=== PATIENT | female | born 1995 | race Caucasian/White ===

== ENCOUNTER 2017-02-16 11:06 | Inpatient (IN) | payer OTHER ==
[~2017-02-16] VITALS: Ht 162.6 cm; Wt 89.4 kg
[2017-02-16 11:37] LABS: Mean Corpuscular Hemoglobin 29.5 pg (27.0-35.0); Mean Corpuscular Volume 85.3 fL (81-100)
--- NOTE | 2017-02-16 14:27 | PCM.HPOB ---
Subjective Date of Service: Feb 16, 2017 Referring Provider: Admitting Physician: Lisa Saba MD Primary Care Physician: Nopcp Attending Physician: Lisa Saba MD Chief Complaint 39 wk 6 day gestation induction of labor for symptomatic induced hypertension History of Present History of Present Illness Patient is a 22 y.o. F at 39 weeks and 6 days MELVIN 02/18/17 presents to [facility] from office for induction of labor due to symptomatic induced hypertension. Patient seen in clinic today noted to have elevated BP 140's/90's , patient noted over past two weeks increased swelling of upper extremities, occasional headache, mild swelling of feet. BP at last two visits elevated. Decision made in clinic to have patient evaluated in [facility] for NST and PIH labs. With elevated BP and symptoms over past two weeks decision made to admit patient and start induction of labor. Patient examined at bedside patient noted active symptoms of elevated BP at home , swelling in hands which has improved somewhat from last week. Patient denies headache, change in vision, numbness, tingling, loss of balance, anuria,dysuria , fever, chills, night sweats, vaginal bleeding, discharge leakinage of fluid. PIH labs done at [facility] protein/creatine ration 0.19, Cr. 0.50. WCT 7.8 H/H 39.9/ 13.8. Patient requests no blood transfusion if needed. Labs: Pap normal GGT normal GBS negative O + Ab screening negative H/H 44.6/15.2 Varicella immune Rubella immune RPR non reactive Hep B neg HIV neg UA negative PIH labs negative OB History: (1), Para (0) Obstetrical Complications: Gestational Hypertension Past Medical History Obstetrical History: No prior pregnancies Gynecologic History: Last pap normal No history of STI Medical History: Seasonal allergies Allergy to shellfish Surgical History: none reported Social History: lives with family Hx Tobacco Use: No Hx Alcohol Use: No Hx Substance Use: No Past Family History Living Arrangement: with Family Genetic Screening/Counseling Genetic Screening/Counseling: Negative Review of Systems Constitutional: Y: Change of appitite, Chills, Dizziness Eyes: Denies: Blurred Vision, Conjunctive Inflammation, Double Vision Cardiovascular: Reports: Edema, Denies: Chest Pain, Orthopnea, Palpitations, SOB while laying flat Respiratory: Denies: Cough, Cough with bloody sputum, Pleuritic Chest Pain Gastrointestinal: Denies: Abdominal Pain, Epigastric pain, Heartburn, Nausea, Vomiting Genitourinary: Denies: Dysuria, Hematuria Musculoskeletal: Denies: Limitation of Function, Redness, Swelling Neurological: Denies: Change in Speech, Confusion, Dizziness, Incoordination Psychologic: Denies: Agitation, Anxious, Apprehensive Allergy Coded Allergies: shellfish derived (Verified Allergy, Unknown, 02/16/17) Exam Vital Signs HR 85 BP 129/89 Exam FHR baseline: 135 Category I tracing irregular contractions Cervical exam 1.0 dialtion 50% effaced station -3 firm posterior Constitutional: Well-developed, Well-nourished HEENT: Atraumatic, PERRLA, EOMI, Scleral Anicteric Lungs: Clear to Auscultation, Normal Air Movement Heart: Regular Rate/Rhythm, Normal S1, Normal S2 Abdomen: Gravid (consistnet with gestational age), Normal bowel sounds, No tenderness Extremities: Pulses Palpable x4, Edema (trace lower and upper extremities ) Neurological/Psychiatric: Alert, Oriented X3, Cooperative, No Acute Distress Labs/Diagnostics Labs Laboratory Tests 72 Hours Test 02/16/17 11:20 White Blood Count 7.8th/mm3 (3.8-10.1) Red Blood Count 4.68mil/mm3 (3.90-5.20) Hemoglobin 13.8g/dL (12.0-15.6) Hematocrit 39.9% (35.0-46.0) Mean Corpuscular Volume 85.3fL (81-100) Mean Corpuscular Hemoglobin 29.5pg (27.0-35.0) Mean Corpuscular Hemoglobin Concent 34.6% (32.0-37.0) Red Cell Distribution Width 13.7% (12.3-15.4) Platelet Count 252bil/L (150-400) Hematology Comments Urine Random Creatinine 109mg/dL (16-392) Urine Random Total Protein 21mg/dL (0-15) Urine Protein/Creatinine Ratio 0.19 (0-200) Blood Urea Nitrogen 12mg/dL (6-20) Creatinine 0.50mg/dL (0.57-1.00) Uric Acid 4.8mg/dL (2.6-7.2) Aspartate Amino Transf (AST/SGOT) 14U/L (0-50) Alanine Aminotransferase (ALT/SGPT) 16U/L (0-32) Maternal Blood Type: AB Hx Rho(D) Immune Globulin: No Antibody Screen: negative Group B Strep Results: Negative Previous with GBS: No Rubella: Immune Additional Information vaccinations up to date OB Intrapartum Assessment/Plan Assessment Patient is a 22 y.o. F at 39 weeks and 6 days MELVIN 02/18/17 presents to [facility] from office for induction of labor due to symptomatic induced hypertension.PIH labs prot/creat ration0.19, BP uncontrol at time of examination , does not meet criteria for IV Mg, cervix and Bains score not favorable for induction with Pitocin. Problems: (1) induced hypertension Plan: Admit to [facility] Start IV IVF LR 125 mls/hr Diet full, NPO when starting pitocin Continue tocometry Ibuprofen 600 mg PO Q6 hrs for pain Tylenol 625 mg PO Q8 hrs for pain Zofran ODT 4 mg PRN nausea PIH labs completed Start induction with Cytotec 25 mg with cervical check in 4 hours Vitals Q4 hours Status: Acute ICD Code: O13.9 (2) with 39 completed weeks gestation Status: Acute ICD Code: Z3A.39 Attending Statement Patient seen and examined. Cytotec ordered, until Bains score >8, if still unfavorable after this then will place cervidil. BP stable at this time. FHT category 1 SARAH RANDLE DO Feb 16, 2017 14:27 Lisa Saba MD Feb 16, 2017 18:03
[2017-02-16] MEDS: Misoprostol 25 mCg/0.25 Tablet VAGINAL SCH ×2 (14:42→18:40)
[2017-02-16] MEDS ORDERED: Lactated Ringer's 1,000 ML IV PRN (16:38)
[2017-02-16] MEDS ORDERED: Oxytocin 30 Units/500 mL LR 30 UNITS in IV Premix 1 EACH IV PRN (16:40)
[2017-02-16] MEDS ORDERED: Oxytocin 10 Unit/mL Inj IM PRN (16:40)
[2017-02-16] MEDS ORDERED: Hemorrhage Kit, Post Partum XX ONE (16:40)
[2017-02-16] MEDS ORDERED: Sodium Chloride LOK Flush 10 mL Syringe IVFLUSH PRN (16:40)
[2017-02-16] MEDS ORDERED: Carboprost 250 mCg/mL Inj IM PRN (16:40)
[2017-02-16] MEDS ORDERED: Methylergonovine 0.2 mg/mL Inj IM PRN (16:40)
[2017-02-16] MEDS ORDERED: Misoprostol 25 mCg/0.25 Tablet VAGINAL ONE (20:30)
[2017-02-16] MEDS: Lactated Ringer's 1,000 ML IV SCH ×2 (21:30→23:45)
[2017-02-17] MEDS ORDERED: Ondansetron 2 mg/mL 2 mL Inj IVPUSH PRN (01:35)
[2017-02-17] MEDS: fentaNYL-PF 50 mCg/mL 2 mL Inj IVPUSH PRN ×3 (02:14→05:11)
[2017-02-17] MEDS: Lactated Ringer's 1,000 ML IV SCH (03:52)
[2017-02-17] MEDS ORDERED: Lactated Ringer's 500 ML IV ONE (05:09)
[2017-02-17] MEDS ORDERED: Lactated Ringer's 1,000 ML IV SCH ×2 (05:09→18:34)
[2017-02-17] MEDS ORDERED: Phenylephrine/NS-PF 100 mCg/mL 5 mL Syringe IVPUSH PRN (05:10)
[2017-02-17] MEDS ORDERED: fentaNYL 2 mCg/mL-Bupiv 0.125% 100 ML EPIDURAL SCH (05:10)
[2017-02-17] MEDS ORDERED: EPHEDrine Sulfate 50 mg/mL Inj IVPUSH PRN (05:10)
[2017-02-17] MEDS ORDERED: Atropine 1 mg/10 mL (Code) Syringe IVPUSH PRN (05:10)
--- NOTE | 2017-02-17 05:14 | PCM.HPANE ---
Patient Data Date of Service: Feb 17, 2017 Surgeon Admitting Provider:Lisa Saba MD Attending Provider:Lisa Saba MD Primary Care Physician:Nopcp Other Provider: Reason for Visit Induction INDUCTION Ht/WT & BMI Height (Centimeters): 162.6 Weight (Kilograms): 89.4 Body Mass Index 33.8 Allergies Coded Allergies: shellfish derived (Verified Allergy, Unknown, 02/16/17) Past Anesthesia History Anesthesia History: Denies:: Abnormal Airway, Fam Anesthesia Reaction Diabetes History Hx Diabetes?: No Medications Hypertension Medication: No Home Meds Incl Beta Carlito: No History History of ENT Problems?: No HEENT History: Denies:: Abnormal Airway Denture Type: None Teeth Condition: Within Normal Limits Hx of Heart Problems?: Yes Cardiovascular History: Positive for:: Edema (with ) Hypertension (with ) Hx of Respiratory Problem?: No Respiratory History: Denies:: Asthma Hx Neurologic Problems?: No Neurological History: Denies:: Peripheral Neuropathy Seizures Hx of GI Problems?: No Hx of Problems?: No Female Hx: Positive for:: Currently Hx Musculoskeletal Problems?: No Hx Surgeries?: No Hx Alcohol Use: NoHx Substance Use: No Smoking Status: Never Smoker Stop/Bang Risk Assessment Category Category 1A: Patient has history of documented sleep apnea, and HAS NOT received any narcotic, sedative or anesthesia administration during this stay. Category 1B: Patient has history of documented sleep apnea, and HAS received any narcotic , sedative or anesthesia administration during this stay Category 2: Patient has SUSPECTED Obstructive Sleep Apnea, and HAS received any narcotic , sedative or anesthesia administration during this stay. Category 3: Patient has SUSPECTED Obstructive Sleep Apnea and HAS NOT received narcotic, sedative or anesthesia administration during this stay. Category 4: Outpatient in Procedural Areas with known sleep apnea or who screen positive for High Risk via the STOP/BANG questionnaire. Exam Exam General Appearance: Alert, Oriented X3, Cooperative, Moderate Distress ( contraction pain) HEENT/AIRWAY: MP 3, Neck Movement (from) Lungs: Clear to Auscultation, Normal Air Movement Heart: Other (tachycardic, no murmur) Meds/Labs/Diagnostics Admission Meds Current Medications Lactated Ringer's (Lr) 1,000 ml @ 125 mls/hr Q8H IV Last administered on t 03:52; Start 02/16/17 at 13:34 Misoprostol (Cytotec) 25 mcg Q4H VAGINAL Last administered on 02/16/17t 18:40; Start 02/16/17 at 13:35 Labs Test 02/16/17 11:20 White Blood Count 7.8th/mm3 (3.8-10.1) Red Blood Count 4.68mil/mm3 (3.90-5.20) Hemoglobin 13.8g/dL (12.0-15.6) Hematocrit 39.9% (35.0-46.0) Mean Corpuscular Volume 85.3fL (81-100) Mean Corpuscular Hemoglobin 29.5pg (27.0-35.0) Mean Corpuscular Hemoglobin Concent 34.6% (32.0-37.0) Red Cell Distribution Width 13.7% (12.3-15.4) Platelet Count 252bil/L (150-400) Hematology Comments Urine Random Creatinine 109mg/dL (16-392) Urine Random Total Protein 21mg/dL (0-15) Urine Protein/Creatinine Ratio 0.19 (0-200) Blood Urea Nitrogen 12mg/dL (6-20) Creatinine 0.50mg/dL (0.57-1.00) Uric Acid 4.8mg/dL (2.6-7.2) Aspartate Amino Transf (AST/SGOT) 14U/L (0-50) Alanine Aminotransferase (ALT/SGPT) 16U/L (0-32) Plan Impression Patient chart reviewed, patient interviewed and anesthestic plan with risks, benefits, and alternatives discussed, and informed consent obtained. ASA Physical Status: ASA3 Severe Disease (-induced hypertension, peripheral edema) Anesthetic Plan: Epidural (labor) Bene/Risks/Altern/Consents: Yes HP Complete Prior to Induction: Yes Stu Still MD Feb 17, 2017 05:14
--- NOTE | 2017-02-17 07:40 | PCM.PNOBIP ---
Subjective Date of Service Feb 17, 2017 Delivery plan: Spontaneous Vaginal Delivery Visit History Patient is a 22 y.o. F at 39 weeks and 6 days MELVIN 02/18/17 presents to [facility] from office for induction of labor due to symptomatic induced hypertension. Patient seen in clinic today noted to have elevated BP 140's/90's , patient noted over past two weeks increased swelling of upper extremities, occasional headache, mild swelling of feet. BP at last two visits elevated. Decision made in clinic to have patient evaluated in [facility] for NST and PIH labs. With elevated BP and symptoms over past two weeks decision made to admit patient and start induction of labor. 02/16/17 Patient examined at bedside patient noted active symptoms of elevated BP at home, swelling in hands which has improved somewhat from last week. Patient denies headache, change in vision, numbness, tingling, loss of balance, anuria,dysuria, fever, chills, night sweats, vaginal bleeding, discharge leakage of fluid. PIH labs done at [facility] protein/creatine ration 0.19, Cr. 0.50. WCT 7.8 H/H 39.9/13.8. Overnight patient noted to have temp 37.8 with episodes of low BP 90's/60's received 4 L bolus NS, with intermittent late decelerations on tracing. Patient repositioned with improvement in BP and tracing. Patient progressed from 1-cm to 4.5 cm overnight with Cytotec. Patient received epidural after 4 cm dilation. Subjective Today patient examined at bedside patient stated that she had some nausea with epidural without vomiting. Episodes of low BP with dizziness overnight, received 4 L bolus, good urine output in/out cath. Received epidural at 4 cm with painful contractions. Denies fever, shortness of breath, chest pain, swelling of hands/face, changes in vision, bleeding. Labs Labs: Pap normal GGT normal GBS negative O + Ab screening negative H/H 44.6/15.2 Varicella immune Rubella immune RPR non reactive Hep B neg HIV neg UA negative PIH labs negative Group B Strep Results: Negative Rubella: Immune Blood Type: AB Labs Laboratory Tests 02/16/17 11:20: White Blood Count 7.8, Red Blood Count 4.68, Hemoglobin 13.8, Hematocrit 39.9, Mean Corpuscular Volume 85.3, Mean Corpuscular Hemoglobin 29.5, Mean Corpuscular Hemoglobin Concent 34.6, Red Cell Distribution Width 13.7, Platelet Count 252, Hematology Comments Exam Vital Signs Vital Signs Contraction frequency in minutes: MVUs: Vital Signs: VS reviewed, concerns are (overnight episodes of low BP 90's/60's) Heart Tracings Heart Tones Baseline 130 bpm Heart Rate Variability: Moderate Heart Rate Accelleration: Present Heart Rate Deceleration: Present (late) Heart Rate Category: II Tocometry/IUPC Contraction frequency in minutes: MVUs: Sterile Vaginal Exam Cervical Dilation: 4 cms Cervical Effacement: 90 % Station: -2 Exam Abdomen: Uterus is (gravid) Extremities: Edema 1+ Lungs: Clear to Auscultation, Normal Air Movement Heart: Regular Rate/Rhythm, Normal S1, Normal S2, Other (tachycardic, no murmur ) General: Alert, Oriented X3, Cooperative, Moderate Distress (contraction pain) OB Intrapartum Assessment/Plan Assessment Patient is a 22 y.o. F at 39 weeks and 6 days MELVIN 02/18/17dmitted to [facility] from office for induction of labor due to symptomatic induced hypertension. Overnight episodes of hypotension and category II tracings with late decelerations. After repositioning patient had improvement of BP 128/86, and return category I tracing FHR 135 Problems: (1) induced hypertension Plan: Continue intrapartum care Continue maintenance IVF LR 125 mls/hr NPO Continue tocometry Ibuprofen 600 mg PO Q6 hrs for pain Tylenol 625 mg PO Q8 hrs for pain Zofran ODT 4 mg PRN nausea PIH labs completed, negative Continue Pitocin Vitals Q4 hours, monitor strict I/O, monitor hypotension Status: Acute ICD Code: O13.9 (2) with 39 completed weeks gestation Plan: see above Status: Acute ICD Code: Z3A.39 SARAH RANDLE DO Feb 17, 2017 07:40
[2017-02-17] MEDS ORDERED: Oxytocin 30 Units/500 mL LR 30 UNITS in IV Premix 1 EACH IV PRN ×2 (12:40→18:35)
[2017-02-17] MEDS ORDERED: Carboprost 250 mCg/mL Inj IM PRN (18:35)
[2017-02-17] MEDS ORDERED: Oxytocin 10 Unit/mL Inj IM PRN (18:35)
[2017-02-17] MEDS ORDERED: Hemorrhage Kit, Post Partum XX ONE (18:35)
[2017-02-17] MEDS ORDERED: Methylergonovine 0.2 mg/mL Inj IM PRN (18:35)
[2017-02-17] MEDS ORDERED: Witch Hazel-Glycerin Pads TOPICAL PRN (18:35)
[2017-02-17] MEDS ORDERED: LANOlin HPA 7 Gm Ointment TOPICAL PRN (18:35)
[2017-02-17] MEDS ORDERED: Benzocaine (Dermoplast) 20% 60 Gm Spray TOPICAL PRN (18:35)
[2017-02-17] MEDS: oxyCODONE-Acetamin 5-325 mg Tablet PO PRN (22:40)
[2017-02-18] MEDS: oxyCODONE-Acetamin 5-325 mg Tablet PO PRN ×3 (02:34→17:52)
[2017-02-18 06:55] LABS: Mean Corpuscular Hemoglobin 29.7 pg (27.0-35.0); Mean Corpuscular Volume 86.6 fL (81-100)
--- NOTE | 2017-02-18 07:27 | PCM.PNOBPP ---
Subjective Date of Service Feb 18, 2017 Post : Spontaneous Vaginal Delivery Visit History Patient is a 22 y.o. F at 39 weeks and 6 days MELVIN 02/18/17 presents to [facility] from office for induction of labor due to symptomatic induced hypertension. Patient seen in clinic today noted to have elevated BP 140's/90's , patient noted over past two weeks increased swelling of upper extremities, occasional headache, mild swelling of feet. BP at last two visits elevated. Decision made in clinic to have patient evaluated in [facility] for NST and PIH labs. With elevated BP and symptoms over past two weeks decision made to admit patient and start induction of labor. 02/16/17 Patient examined at bedside patient noted active symptoms of elevated BP at home, swelling in hands which has improved somewhat from last week. Patient denies headache, change in vision, numbness, tingling, loss of balance, anuria,dysuria, fever, chills, night sweats, vaginal bleeding, discharge leakage of fluid. PIH labs done at [facility] protein/creatine ration 0.19, Cr. 0.50. WCT 7.8 H/H 39.9/13.8. Overnight patient noted to have temp 37.8 with episodes of low BP 90's/60's received 4 L bolus NS, with intermittent late decelerations on tracing. Patient repositioned with improvement in BP and tracing. Patient progressed from 1-cm to 4.5 cm overnight with Cytotec. Patient received epidural after 4 cm dilation.Patient progress over last evening and delivered via at 1820 . Labs Labs: Pap normal GGT normal GBS negative O + Ab screening negative H/H 44.6/15.2 Varicella immune Rubella immune RPR non reactive Hep B neg HIV neg UA negative PIH labs negative Group B Strep Results: Negative Rubella: Immune Blood Type: AB RH Type: Positive Labs Laboratory Tests 02/16/17 11:20: Hematology Comments 02/18/17 06:40: White Blood Count 11.8, Red Blood Count 3.87, Hemoglobin 11.5, Hematocrit 33.5, Mean Corpuscular Volume 86.6, Mean Corpuscular Hemoglobin 29.7, Mean Corpuscular Hemoglobin Concent 34.3, Red Cell Distribution Width 13.8, Platelet Count 210 Exam Vital Signs Vital Signs: VS reviewed, stable Exam Abdomen: Fundus firm Perineum: Intact : Voiding without difficulty Extremities: Normal pulses, Edema 1+ Lungs: Clear to Auscultation, Normal Air Movement Heart: Regular Rate/Rhythm, Normal S1, Normal S2 General: Alert, Oriented X3, Cooperative, No Acute Distress OB Post Assessment/Plan Assessment Patient is a 22 y.o. F at 39 weeks and 6 days MELVIN 02/18/17 presents to [facility] from office for induction of labor due to symptomatic induced hypertension. H/H 11.5/33.5 WCT 11.8 PLT 210 Cr. 0.5 Problems: (1) induced hypertension Plan: Continue routine post care Ibuprofen 600 mg PO Q6 hrs for pain Tylenol 625 mg PO Q8 hrs for pain Percocet 5-325 mg Q 4-6 hrs for breakthrough pain Feso4 325 mg PO daily Vitamin C daily Colase 100 mg BID Repeat CBC in AM Vitals Q4 hours Status: Acute ICD Code: O13.9 (2) with 39 completed weeks gestation Status: Acute ICD Code: Z3A.39 SARAH RANDLE DO Feb 18, 2017 07:27
[2017-02-18] MEDS: Ascorbic Acid 500 mg Tablet PO SCH ×2 (08:13→17:51)
--- NOTE | 2017-02-18 13:35 | OP ---
[address] [address] OPERATIVE REPORT PATIENT: GLENYS BURNETT : 1995 MR#: [id number] ADMIT: 02/16/2017 JOB ID: [id number] DATE OF SURGERY: 02/17/2017 SURGEON: Nell Veliz M.D. AQUATICS DIRECTOR: None. PREOPERATIVE DIAGNOSIS(ES): 1. Intrauterine at 39 weeks and 6 days. 2. Gestational hypertension without preeclampsia features. 3. History of asthma. POSTOPERATIVE DIAGNOSIS(ES): 1. Intrauterine at 39 weeks and 6 days. 2. Gestational hypertension without preeclampsia features. 3. History of asthma. PROCEDURE: Normal spontaneous vaginal delivery. COMPLICATIONS: None. OUTCOME: Male infant, weight 3123 g, equivalent to 6 pounds 14 ounces. Apgars 9 and 9 at one and five minutes respectively. No nuchal cord. Placenta delivered intact with three-vessel cord. Clear amniotic fluid. DESCRIPTION OF PROCEDURE: This is a 22-year-old 1, para 0, was admitted on February 16, 2017 at 39 weeks gestation and 5 days for induction of labor for gestational hypertension with no preeclampsia features. Expected date of delivery is February 18, 2017. The patient's blood pressure at clinic noted to be in 140s/90s in the past two weeks before admission with increasing swelling of upper extremities. Occasional mild headache and mild swelling in the feet. At admission cervix was 1 cm, 50% effaced, and -3. Cytotec was used for cervical ripening, then spontaneous rupture of membrane noted at 1:48 on February 17, 2017. Cervix was 2 cm, 70% effaced, and -2. Then, the patient progressed in labor until cervix was 8 cm, 90% effaced, and -2 with no cervical change for approximately two hours. Pitocin was started and she progressed to complete dilation at 1730 on February 17, 2017. The patient pushed effectively, under epidural anesthesia to deliver at 1809 on February 17, 2017. Delivered over intact perineum. Head delivered on occiput anterior position with no nuchal cord. Shoulders delivered without difficulty. was placed on the maternal abdomen. Delayed cord clamping was performed after 1 minute. The calendering supervisor was presented in the room secondary to maternal fever that was noted during pushing. Fever of 38.2 at 1800. Fever resolved after delivery. Placenta delivered at 1814 spontaneously intact with three-vessel cord. Perineum was examined and a first degree perineal laceration was repaired with 3-0 Vicryl in a continuous locked fashion. Hemostasis was ensured. Estimated blood loss was 400. The dosing was started after delivery of the placenta. Fundal massage was performed after delivery of the placenta. Uterus was firm. Bleeding was minimal at the end of the procedure. All instrument, needle and sponge counts were correct x2. I, Nell Veliz MD, was present and scrubbed for the entire procedure. Gestational age at the delivery was 39 weeks and 6 days.
[2017-02-19] MEDS: oxyCODONE-Acetamin 5-325 mg Tablet PO PRN ×2 (01:24→06:35)
--- NOTE | 2017-02-19 08:48 | PCM.DC.OB ---
Obstetrical Discharge Summary Date of Service Feb 19, 2017 Date of hospital admission Feb 16, 2017 at 12:47 Date of Discharge: Feb 19, 2017 Providers Admitting Physician: Lisa Saba MD Primary Care Physician: Aicha Attending Physician: Lisa Saba MD Diagnosis at Time of Discharge S/P Term Problems: (1) induced hypertension Status: Resolved ICD Code: O13.9 (2) with 39 completed weeks gestation Status: Resolved ICD Code: Z3A.39 Brief History and Physical: Patient is a 22 y.o. F at 39 weeks and 6 days MELVIN 02/18/17 presents to [facility] from office for induction of labor due to symptomatic induced hypertension. Patient seen in clinic today noted to have elevated BP 140's/90's , patient noted over past two weeks increased swelling of upper extremities, occasional headache, mild swelling of feet. BP at last two visits elevated. Decision made in clinic to have patient evaluated in [facility] for NST and PIH labs. With elevated BP and symptoms over past two weeks decision made to admit patient and start induction of labor. PPD2 patient doing well, V/S stable. Patient denies headache, change in vision, numbness, tingling, loss of balance, anuria,dysuria, fever, chills, night sweats , lochai light Abdomen: Fundus firm Perineum: Intact : Voiding without difficulty Extremities: Normal pulses, Edema 1+ Lungs: Clear to Auscultation, Normal Air Movement Heart: Regular Rate/Rhythm, Normal S1, Normal S2 General: Alert, Oriented X3, Cooperative, No Acute Distress Hospital Course: Patient is a 22 y.o. F at 39 weeks and 6 days MELVIN 02/18/17 presents to [facility] from office for induction of labor due to symptomatic induced hypertension. Patient seen in clinic today noted to have elevated BP 140's/90's , patient noted over past two weeks increased swelling of upper extremities, occasional headache, mild swelling of feet. BP at last two visits elevated. Decision made in clinic to have patient evaluated in [facility] for NST and PIH labs. With elevated BP and symptoms over past two weeks decision made to admit patient and start induction of labor. 02/16/17 Patient examined at bedside patient noted active symptoms of elevated BP at home, swelling in hands which has improved somewhat from last week. Patient denies headache, change in vision, numbness, tingling, loss of balance, anuria,dysuria, fever, chills, night sweats, vaginal bleeding, discharge leakage of fluid. [facility] labs done at [facility] protein/creatine ration 0.19, Cr. 0.50. WCT 7.8 H/H 39.9/13.8. 02/17 patient noted to have temp 37.8 with episodes of low BP 90's/60's received 4 L bolus NS, with intermittent late decelerations on tracing. Patient repositioned with improvement in BP and tracing. Patient progressed from 1-cm to 4.5 cm overnight with Cytotec. Patient received epidural after 4 cm dilation.Patient progress over last evening and delivered via at 1820 . 02/18/17PPD1 Patient doing well. Lochia light, no fever, headache, chills, nausea , vomiting. Baby has not had all test completed scheduled to have [facility] heart testing completed in the evening 02/19/17 PPD2 Patient stable, lochia light, no fever, headache, chills, nausea, vomiting Stable for discharge ([Benzocaine]) 1 SPRAY/GM SPRAY 1 SPRAY TOPICAL PRN PRN PRN for perineal pain Prescribed by: SARAH RANDLE DO ([Lanolin]) 2 APPLIC/GM OINT 1 APPLIC TOPICAL PRN PRN PRN apply to nipples Prescribed by: SARAH RANDLE DO ([Ascorbic Acid]) 500 MG TABLET 500 MG PO BIDWM Prescribed by: SARAH RANDLE DO Docusate Sodium (Colace) 100 Mg Capsule 100 MG PO DAILY Prescribed by: SARAH RANDLE DO Ferrous Sulfate (Feosol) 325 Mg Tablet 325 MG PO BIDWM Prescribed by: SARAH RANDLE DO Ibuprofen (Ibuprofen) 800 Mg Tablet 800 MG PO Q6H PRN PRN For Pain Prescribed by: SARAH RANDLE DO Witch Margie/Glycerin (A.e.r Pads) 12 Towelette/Pkg Towelette 1 PAD TOPICAL PRN PRN PRN for perineal pain Prescribed by: SARAH RANDLE DO oxyCODONE-Acetaminophen 5-325 mg (oxyCODONE-Acetaminophen 5-325 mg) 1 Each Tablet 1-2 TAB PO Q4H PRN PRN For Pain Prescribed by: SARAH RANDLE, Discharge Medications: Colase 100 mg twice daily Iron replacement 325 mg daily Ibuprofen 800 mg every 6 hours Hydrocodone 5-325 for break through pain every 6 hours Disposition Discharge to home Follow-up plan Follow up in clinic in 6 weeks for post check Call out office if you experience worsening mood, thoughts of self harm or harming others, fever, chills, severe nausea and vomiting, worsening bleeding. Discharge Diet: No restrictions Discharge Activity-General: Pelvic Rest for 6 weeks, Pelvic Rest, Try not to overdue, No lifting >15 pounds for 2 weeks Patient instructions Colase 100 mg twice daily Iron replacement 325 mg daily Ibuprofen 800 mg every 6 hours Hydrocodone 5-325 for break through pain every 6 hours Continue vitamin Follow up in clinic in 6 weeks for post check Call out office if you experience worsening mood, thoughts of self harm or harming others, fever, chills, severe nausea and vomiting, worsening bleeding. Attending Statement: I saw patient and examined her. I agree with above plan. SARAH RANDLE DO Feb 19, 2017 08:48 Jeanne Small MD Feb 21, 2017 15:59
--- NOTE | 2017-02-19 08:50 | PCM.DIOB ---
SARAH RANDLE DO 02/19/17 0850: Obstetrical Disch Instruction Date of Service: Feb 19, 2017 Dates of Hospitalization Date of Hospital Admission Feb 16, 2017 at 12:47 Providers Admitting Physician: Lisa Saba MD Primary Care Physician: Aicha Attending Physician: Lisa Saba MD Discharge Diagnosis Discharge Diagnosis S/P term Problems: (1) induced hypertension Status: Resolved ICD Code: O13.9 (2) with 39 completed weeks gestation Status: Resolved ICD Code: Z3A.39 Diet Discharge Diet: No restrictions Activity Discharge Activity-General: Pelvic Rest for 6 weeks, Try not to overdue, Be up and about, No lifting >15 pounds for 2 weeks, No lifting >10 pounds for 4-6 weeks Dressing and Incisional Care Hygiene: May shower, NO bathtub, hot tub or whirlpool, Perineal care Additional Instructions Discharge Instructions Colase 100 mg twice daily Iron replacement 325 mg daily Ibuprofen 800 mg every 6 hours Hydrocodone 5-325 for break through pain every 6 hours Continue vitamin Follow up in clinic in 6 weeks for post check Call out office if you experience worsening mood, thoughts of self harm or harming others, fever, chills, severe nausea and vomiting, worsening bleeding. Follow Up Plan Follow Up Plan 6 weeks at [facility] for post check Jeanne Small MD 02/21/17 1600: Obstetrical Disch Instruction Attending Statement I saw patient and examined her. I agree with above plan. SARAH RANDLE DO Feb 19, 2017 08:50 Jeanne Small MD Feb 21, 2017 16:00
[2017-02-19] MEDS ORDERED: TUCPAD TOPICAL (08:53)
[2017-02-19] MEDS ORDERED: FERR-74 PO (08:53)
[2017-02-19] MEDS ORDERED: OXYC1TAB24 PO (08:53)
[2017-02-19] MEDS ORDERED: Ascorbic Acid PO (08:53)
[2017-02-19] MEDS ORDERED: DOCU-41 PO (08:53)
[2017-02-19] MEDS ORDERED: Benzocaine TOPICAL (08:53)
[2017-02-19] MEDS ORDERED: Lanolin TOPICAL (08:53)
[2017-02-19] MEDS ORDERED: IBUP800T28 PO (08:53)
[2017-02-19] MEDS: Ascorbic Acid 500 mg Tablet PO SCH (09:41)
== END 2017-02-19 11:10 | disposition home or self-care (01) | DRG 775 ==
LOC: FBCO 11:06 → FBC 12:47
PROVIDERS: ADMIT Obstetrics & Gynecology; ATTEND Obstetrics & Gynecology
PROC: 3E0P7GC Introduction of Other Therapeutic Substance into Female Reproductive, Via Natural or Artificial Opening (ICD-10-PCS; 2017-02-16)
PROC: 10E0XZZ Delivery of Products of Conception, External Approach (ICD-10-PCS; principal; 2017-02-17)
PROC: 0HQ9XZZ Repair Perineum Skin, External Approach (ICD-10-PCS; 2017-02-17)
DX: O13.4 Gestational [pregnancy-induced] hypertension without significant proteinuria, complicating childbirth (principal); O70.0 First degree perineal laceration during delivery; Z3A.39 39 weeks gestation of pregnancy; Z37.0 Single live birth